=== PATIENT | male | born 2000 | race Caucasian/White ===

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

== ENCOUNTER 2023-06-05 05:29 | Emergency (ER) | payer BC, MEDICAID ==
[~2023-06-05] VITALS: Ht 177.8 cm; Wt 59.5 kg
[2023-06-05] MEDS ORDERED: LIDOCAINE VISCOUS 2% 15ML UD PO ONE (07:15)
[2023-06-05 07:31] VITALS: BP 147/75; PULSE 78; RESP 16; TEMP 98.1; O2SAT 99
[2023-06-05 07:53] LABS: Rapid Strep A Screen-Throat Negative
[2023-06-05] MEDS ORDERED: LIDO2SOL26 MT (07:56)
[2023-06-05] MEDS ORDERED: NABU-72 PO (07:56)
== END 2023-06-05 08:10 | disposition home or self-care (01) ==
LOC: ER 05:29
DX: J02.9 Acute pharyngitis, unspecified (principal); J45.909 Unspecified asthma, uncomplicated; Z79.899 Other long term (current) drug therapy
CPT/HCPCS: 87070; 87880